=== PATIENT | female | born 1950 | race African-American/Black ===

== ENCOUNTER 2017-08-31 19:34 | Emergency (ER) | payer OTHER ==
[~2017-08-31] VITALS: Ht 157.5 cm; Wt 59.9 kg
[~2017-08-31 19:34] MED LIST: BIOTIN5 MG PO; CHROMIUM400 MCG PO; COUMADIN 1MG TAB1 M1 PO; COUMADIN 5 MG TA5 M1 PO; COUMADIN7.5 MG PO; HYDROCHLOROTHIA25 M2 PO; VITAMIN D1000 UNI2 PO
[2017-08-31 21:15] LABS: INR 1.2; PROTIME 12.7 Seconds (9.3-11.4)
[2017-08-31] MEDS ORDERED: NORFLEX100 MG PO (21:20)
[2017-08-31] MEDS ORDERED: ZOFRAN ODT4 M1 PO (21:20)
[2017-08-31 21:26] VITALS: BP 117/84
== END 2017-08-31 21:25 | disposition home or self-care (01) ==
LOC: ER 19:34
PROVIDERS: Nurse Practitioner Family
DX: S39.012A Strain of muscle, fascia and tendon of lower back, initial encounter (principal); S29.012A Strain of muscle and tendon of back wall of thorax, initial encounter; R11.0 Nausea; R79.1 Abnormal coagulation profile; I10 Essential (primary) hypertension; Z90.710 Acquired absence of both cervix and uterus; Z86.73 Personal history of transient ischemic attack (TIA), and cerebral infarction without residual deficits; V49.49XA Driver injured in collision with other motor vehicles in traffic accident, initial encounter; Y93.89 Activity, other specified; Y92.89 Other specified places as the place of occurrence of the external cause; Y99.8 Other external cause status

== ENCOUNTER 2018-12-09 18:36 | Emergency (ER) | payer OTHER ==
[~2018-12-09] VITALS: Ht 157.5 cm; Wt 62.6 kg
[~2018-12-09 18:36] MED LIST changes: +NORFLEX100 MG PO; +ZOFRAN ODT4 M1 PO
[2018-12-09] MEDS ORDERED: TYLENOL EXTRA500 MG PO (20:47)
[2018-12-09 21:57] VITALS: BP 115/80
== END 2018-12-09 21:58 | disposition home or self-care (01) ==
LOC: ER 18:36
DX: S46.212A Strain of muscle, fascia and tendon of other parts of biceps, left arm, initial encounter (principal); I10 Essential (primary) hypertension; Z86.73 Personal history of transient ischemic attack (TIA), and cerebral infarction without residual deficits; Z90.710 Acquired absence of both cervix and uterus; X58.XXXA Exposure to other specified factors, initial encounter; Y93.89 Activity, other specified; Y92.89 Other specified places as the place of occurrence of the external cause; Y99.8 Other external cause status

== ENCOUNTER 2019-02-22 22:29 | Emergency (ER) | payer OTHER ==
[~2019-02-22] VITALS: Ht 157.5 cm; Wt 62.6 kg
[~2019-02-22 22:29] MED LIST changes: +TYLENOL EXTRA500 MG PO
[2019-02-23] MEDS ORDERED: NORCO 5-325 TA1 EACH PO (02:20)
[2019-02-23] MEDS ORDERED: VALIUM5 MG PO (02:20)
[2019-02-23 02:57] VITALS: BP 110/80
[2019-02-24] MEDS ORDERED: COUMADIN7.5 MG PO (16:08)
== END 2019-02-23 02:59 | disposition home or self-care (01) ==
LOC: ER 22:29
DX: M54.32 Sciatica, left side (principal); I10 Essential (primary) hypertension; Z86.73 Personal history of transient ischemic attack (TIA), and cerebral infarction without residual deficits; Z90.710 Acquired absence of both cervix and uterus

== ENCOUNTER 2019-02-24 15:43 | Inpatient (IN) | payer OTHER ==
[~2019-02-24] VITALS: Ht 157.5 cm; Wt 62.6 kg
[~2019-02-24 15:43] MED LIST changes: +NORCO 5-325 TA1 EACH PO; +VALIUM5 MG PO
[2019-02-24 15:44] VITALS: BP 123/79
[2019-02-24] MEDS ORDERED: COUMADIN7.5 MG PO (16:08)
[2019-02-24 16:45] LABS: ABSOLUTE NEUTROPHILS 7.4 thou/uL (1.4-8.2); BASOPHILS 0.3 % (0.0-2.0); EOSINOPHILS 0.5 % (0.0-3.0); HEMATOCRIT 41.4 % (37.0-47.0); HEMOGLOBIN 13.8 gm/dL (12.0-15.0); LYMPHOCYTES 10.8 % (24.0-44.0); MCHC 33.5 g/dL (28.0-37.0); MCV 89.8 fL (80.0-100.0); MONOCYTES 9.7 % (1.0-8.0); PLATELET COUNT 217 thou/uL (150-400); POLYS 78.7 % (36.0-66.0); RBC 4.61 mil/uL (4.20-5.00); RDW 14.2 % (10.5-14.5); WBC 9.4 thou/uL (4.0-11.0)
[2019-02-24 16:48] LABS: CALCIUM 10.4 mg/dL (8.5-10.1); CREATININE 1.1 mg/dL (0.6-1.0); POTASSIUM 3.2 mmol/L (3.5-5.1)
[2019-02-24 18:02] LABS: URINE BILIRUBIN NEGATIVE (Negative); URINE BLOOD 2+ (Negative); URINE CLARITY CLEAR; URINE COLOR YELLOW; URINE GLUCOSE-RANDOM* NEGATIVE (Negative); URINE KETONES 1+ (Negative); URINE NITRITE-REFLEX NEGATIVE (Negative); URINE PROTEIN (DIPSTICK) NEGATIVE (Negative); URINE UROBILINOGEN 0.2 E.U./dl (0.2-1.0)
[2019-02-24 18:03] LABS: URINE LEUKOCYTES-REFLEX 3+ (Negative)
[2019-02-24 18:20] LABS: BACTERIA-REFLEX None Seen /HPF (None Seen); CASTS None Seen /LPF (None Seen); CRYSTALS None Seen /LPF (None Seen); SQUAMOUS 0-3 Few /LPF (0-3); URINE RBC 3-10 Few /HPF (0-2); URINE WBC-REFLEX >25 Many /HPF (0-5); WBC CLUMPS Moderate (None Seen)
[2019-02-24 20:41] VITALS: BP 124/80
[2019-02-24 21:57] VITALS: BP 116/72
--- NOTE | 2019-02-25 03:40 | NUR ---
Pt came up to unit from ED approx 2049. Alert and oriented x4. C/o back pain radiating to left leg. Prn pain med administered. Admission completed. Pt will have MRI in am. MRI checklist completed and faxed to radiology. IVF infusing. Will continue to monitor and assist with needs.
[2019-02-25 05:25] VITALS: BP 103/72
[2019-02-25 05:35] LABS: CALCIUM 9.8 mg/dL (8.5-10.1); CREATININE 0.9 mg/dL (0.6-1.0); INR 2.8; PROTIME 28.8 Seconds (9.3-11.4)
--- NOTE | 2019-02-25 08:06 | NUR ---
PT A&OX4, AMBULATES WITH ASSIST X1 AND WALKER. IV INTACT INTACT IN R AC INFUSING NS @ 75/HR. TOLERATING PO PAIN MED WELL. CALLS OUT APPROP. WILL CONT POC.
--- NOTE | 2019-02-25 16:04 | NUR ---
INITIAL ASSESSMENT: Pt evaluated for d/c planning needs. Reviewed chart and spoke with nurse and pt. Pt is alert and oriented. Pt lives in house with spouse and was independent with ADL's prior to admission to the hospital. Pt has no DME and has not had home health in the past. Pt plans on returning home on d/c from hospital. Will remain available to assist as needed.
[2019-02-25 19:38] VITALS: BP 122/84
[2019-02-25 23:28] VITALS: BP 108/72
--- NOTE | 2019-02-26 03:57 | NUR ---
Assumed pt care at 1900.A/OX4,VSS.C/o pain to left lower back especially with movement LOP 8/10 medicated per EMAR with some relief reported. Voiding without any difficulties.Pt encouraged to call for assistance as needed,call light/personal items placed within reach. Will continue to monitor pt.
[2019-02-26 06:55] LABS: INR 3.7; PROTIME 38.2 Seconds (9.3-11.4)
[2019-02-26 07:23] VITALS: BP 115/82
--- NOTE | 2019-02-26 10:18 | NUR ---
PATIENT CARE WAS ASSUMED AT 0715.PATIENT IS ALERT AND ORIENTED X4.PATIENT IS ABLE TO GET UP WITH STANDBY ASSIST WITH WALKER.PT HAS COMPLAINS OF PAIN 7/10.WILL GIVE PAIN MEDS WITN MORNING MED PASS.CALL LIGHT,PHONE, AND PERSONAL BELONGINGS ARE WITHIN REACH.
--- NOTE | 2019-02-26 16:57 | NUR ---
IT IS ANTICIAPTED THAT CARE TEAM ARE STILL AWAITING VISIT FROM PAIN MANAGEMENT. CM TO FOLLOW INDICATED WITH DC PLANNING.
[2019-02-26 21:26] VITALS: BP 122/81
[2019-02-26 21:29] VITALS: BP 122/81
--- NOTE | 2019-02-27 02:32 | NUR ---
Assumed pt. care at 1900. Remains A&Ox3; swallows meds whole w/o difficulty. Remains cont. B&B. Ambulates to bathroom w/ standby asst + walker; gait steady. RAC SL noted/flushed w/ NS w/o difficulty. Pt. has no c/o pain or discomfort, at this time. No s/s of acute distress noted. Pt. asleep in bed w/ call light/desired belongings within reach. PO fluids encouraged. Will continue to monitor.
[2019-02-27 08:15] VITALS: BP 116/77
[2019-02-27 08:23] LABS: INR 2.3; PROTIME 23.6 Seconds (9.3-11.4)
--- NOTE | 2019-02-27 13:15 | NUR ---
ASSUMED PATIENT AND CARES AT 0715, PATIENT WOKE IN BED WITH HOB UPRIGHT, A&OX4, PAIN 02/27, RECEIVED PRN MORPHINE AT 0510 AND PRN NORCO AT 0240, SBA WITH WALKER, PATIENT MOVES SLOWLY DUE TO PAIN, CONTINENT OF B&B, RAC INTACT AND PATENT PER FLUSH, FALL PRECAUTIONS IN PLACE, PERSONAL BELONGINGS AND CALL LIGHT IN REACH, WILL CONTINUE TO MONITOR
--- NOTE | 2019-02-27 16:19 | NUR ---
PHYSICIAN INDICATED THAT PT IS PROGRESSING TOWARD GOAL OF DISCHARGE BUT THAT SHE IS NOT YET MEDICALLY STABLE FOR DISCHARGE. SHOULD PT NEEDS ARISE CM ABLE TO ASSIST.
[2019-02-27 19:30] VITALS: BP 110/78
--- NOTE | 2019-02-28 03:21 | NUR ---
ASSUMED CARE FROM DAY SHIFT PT CONTINUE TO TAKE PAIN MEDICATION OTC FOR BACK PAIN , UP WITH WALKER GAIT SLOW BUT STEADY, DICUSSED PLAN OF CARE AND AGREEABLE AND VERBALIZED UNDERSTANDING. WILL CONINTUE WITH CURRENT PLAN OF CARE AND WILL REPORT CHANGES OR ABNORMAL FINDINGS.
[2019-02-28 08:27] VITALS: BP 111/78
[2019-02-28 18:04] VITALS: BP 132/80
--- NOTE | 2019-02-28 18:41 | NUR ---
REPORT RECEIVED AND CARE ASSUMED FROM NOC NURSE; PT IN STABLE CONDITION THIS SHIFT; NO S/SX OF DISTRESS; PT C/O CONTINUED LOWER BACK PAIN, 04/29; PT GIVEN NORCO 2 TABS Q4H; NO OTHER ISSUES/CONCERNS; FOLLOWING POC; WILL CONT. TO MONITOR
[2019-02-28 20:23] VITALS: BP 117/76
[2019-03-01 05:29] VITALS: BP 108/66
--- NOTE | 2019-03-01 07:52 | NUR ---
NOC SHIFT SUMMARY: PT WALKING TO THE BATHROOM USING ROLLER WALKER WITH SBA. BACK PAIN WELL CONTROLLED WITH HYDROCODONE. NO FURTHER CONCERNS.
--- NOTE | 2019-03-01 15:20 | NUR ---
ASSUMED CARE OF PT AT 0700. ASSESSMENT COMPLETED. A&O,X4. C/O LEFT SIDED BACK PAIN AND LEFT LEG PAIN, PAIN MEDS GIVEN ORDERED. NEW MEDS ORDERED FOR MUSCLE SPASMS TODAY, GIVEN ORDERED. ROOM AIR. STANDBY ASSIST. VSS. PT IN STABLE CONDITION. NO OTHER CHANGE IN STATUS. WILL CONTINUE TO MONITOR UNTIL EOS.
[2019-03-01 20:17] VITALS: BP 104/81
[2019-03-02 05:24] VITALS: BP 112/76
[2019-03-02 06:00] LABS: INR 1.2; PROTIME 12.2 Seconds (9.3-11.4)
--- NOTE | 2019-03-02 06:31 | NUR ---
PT C/O PAIN,MANAGED WITH PO PAIN MED.UP WITH SBA AND WALKER TO BR.ASESSMENT COMPLETED.CALL LIGHT WITHIN REACH.
[2019-03-02 08:20] VITALS: BP 110/84
[2019-03-02] MEDS ORDERED: CYCLOBENZAPRINE5 MG PO (11:52)
[2019-03-02] MEDS ORDERED: MIRALAX17 GM PO (12:00)
[2019-03-02 13:29] VITALS: BP 110/84
[2019-03-02] MEDS ORDERED: NORCO 5-325 TA1 EACH PO (13:48)
[2019-03-02 14:33] VITALS: BP 110/84
--- NOTE | 2019-03-02 15:44 | NUR ---
ASSUMED CARE OF PT AT 0700. ASSESSMENT COMPLETED. A&O,X4. C/O LOWER BACK PAIN RADIATING TO LEFT LEG PAIN, PAIN MEDS GIVEN ORDERED. NEW DISCHARGE ORDERS. PT WILL NEED TO FOLLOW UP WITH PAIN CLINIC AND MAKE APPOINTMENT FOR TOMORROW TO HAVE EPIDURAL INJECTION. PT VERBALIZES UNDERSTANDING. D/C INFORMATION GIVEN TO PT AND FAMILYL AT BEDSIDE. NEW SCRIPTS AND CARENOTES GIVEN. IV REMOVED, NO ACTIVE BLEEDING. PT DRESSED IN PERSONAL CLOTHING. BELONGINGS COLLECTED AND SENT WITH PT. NEW WALKER GIVEN TO PT AT TIME OF D/C. PT LEFT VIA WHEELCHAIR ESCORT IN STABLE CONDITION AT 15:45.
[2019-03-03] MEDS ORDERED: COUMADIN 5 MG TA5 M1 PO (13:31)
[2019-03-03] MEDS ORDERED: COUMADIN7.5 MG PO (13:32)
[2019-03-03] MEDS ORDERED: NORCO 5-325 TA1 EACH PO (13:32)
== END 2019-03-02 15:48 | disposition home or self-care (01) | DRG 551 ==
LOC: ER 15:43 → EROBS 19:10 → 4E 19:10 → ENTRNSPT 02-25 17:42 → SICU 02-25 18:39 → 4E 02-28 17:04 → ENTRNSPT 03-02 15:33 → EDTRNSPTSTS 03-02 15:37 → 4E 03-02 15:48
PROVIDERS: Emergency Medicine; Nurse Practitioner Family; ADMIT Hospitalist
DX: M54.32 Sciatica, left side (principal); I63.9 Cerebral infarction, unspecified; N39.0 Urinary tract infection, site not specified; K59.00 Constipation, unspecified; G89.29 Other chronic pain; M54.9 Dorsalgia, unspecified; Z90.710 Acquired absence of both cervix and uterus; Z86.73 Personal history of transient ischemic attack (TIA), and cerebral infarction without residual deficits; Z86.718 Personal history of other venous thrombosis and embolism
CPT/HCPCS: 10084; 10183; 10783; 15002

== ENCOUNTER → 2019-03-03 | Outpatient (CLI) | payer OTHER ==
[~2019-03-03] VITALS: Ht 157.5 cm; Wt 61.2 kg
[~2019-03-03] MED LIST changes: +CYCLOBENZAPRINE5 MG PO; +MIRALAX17 GM PO
--- NOTE | ~2019-03-03 | HPC ---
[facility] [place] [address] PAIN MANAGEMENT CONSULTATION Name: CYNHTIA FARMER [id number] Admission: 03/03/19 ������������������ Attend Phys: William Olson DO Discharge: ������������������ Date of : 50 Report #: [id number] THIS REPORT FOR: //name// CC: Ozzie Olson DATE OF SERVICE: 03/03/2019 REFERRING PHYSICIAN: Ozzie King MD. CHIEF COMPLAINT: Low back pain, left lower extremity pain and paresthesias. HISTORY OF PRESENT ILLNESS: As you know, the patient is a 68-year-old female who reports acute onset of low back pain, left lower extremity pain and paresthesias that began 02/22/2019. She denies injury or trauma that may have led to symptom development. She states pain began in the low back, radiating down the leg, which brought her to the Emergency Department here at [facility]. She was admitted for further evaluation. She underwent MRI of the lumbar spine, which showed spondylolisthesis at multiple levels with most severe at the L5-S1 level, left foraminal stenosis noted at the L5-S1 level. No significant central canal stenoses were noted at any level. The patient was subsequently discharged with plans to come to our clinic today for possible epidural injection under fluoroscopic guidance. The patient has had prior epidural injections to address lumbar radicular symptoms. Apparently, they worked very well in the past, but this has been years ago. The patient reports today, her pain is steady, continuous and constant, describes the pain as shooting, pulling, gnawing, places current pain score at 8/10, daily average at 8-9/10, worst pain has been a 10/10. The patient states that "moving" exacerbates her symptoms. Lying down and pain medications tend to improve pain. She has been referred to our service by Dr. King for possible epidural injection under fluoroscopic guidance. PAST MEDICAL HISTORY: 1. Chronic colon problems. 2. 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 3. Hypertension. PAST SURGICAL HISTORY: Jac lowery. SOCIAL HISTORY: The patient denies tobacco, alcohol, IV or illicit drug use. 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 She is working, not receiving workmen's compensation or is she trying to obtain disability benefits. She is not in litigation in regards to pain. [facility] [address] [place] [address] PAIN MANAGEMENT CONSULTATION Name: CYNTHIA FARMER Charles Room #: REG CL Yenifer#: [id number] Admission: 03/03/19 ������������������ Attend Phys: William Olson DO Discharge: ������������������ Date of : 50 Report #: [id number] REVIEW OF SYSTEMS: Positive for wearing corrective eyewear, varicose veins, low back pain, left lower extremity pain with paresthesias, hypertension. All other review of systems negative per 12-point review of systems other than those listed in history of present illness. Pain impact score 40/70 indicating moderate interference of daily activities secondary to pain. ALLERGIES: No known drug allergies. CURRENT MEDICATIONS: Hydrochlorothiazide 25 mg once a day, cholecalciferol 1000 units once a day, Coumadin 5 mg once a day, hydrocodone/acetaminophen 5/325 three times a day p.r.n. pain. IMAGING: MRI lumbar spine obtained 02/25/2019 shows T12-L1 unremarkable. L1-L2 shows no significant central canal neural foraminal stenosis. L2-L3: Slight disk bulge, bilateral facet arthrosis, no central canal stenosis, no significant neural foraminal stenosis. L3-L4: Bilateral hypertrophic facet arthropathy, small joint effusions, mild degenerative changes with anterolisthesis of L3 on L4. There is slight disk bulge at this level. No significant neural foraminal stenosis. L4-L5: Bilateral facet hypertrophy, small facet joint effusions, mild degenerative anterolisthesis of L4 on L5, minimal disk bulge without central canal or neural foraminal stenosis. No lateral recess stenosis. L5-S1 shows marked disk space narrowing with grade 1 spondylolisthesis. There is noted bilaterally L5 pars interarticularis defects as well as bilateral facet arthropathy. No central canal stenosis. There is neural foraminal stenosis on the left. No significant right foraminal stenosis. PHYSICAL EXAMINATION: VITAL SIGNS: Blood pressure 107/83, pulse 79, respiratory rate 16 and unlabored. The patient is 98% on room air. Height 5 feet 2 inches tall, weight 135 pounds, BMI calculated 24.7. GENERAL: Well-developed, well-nourished, well-hydrated 68-year-old female, appearing stated age. She is in mild distress secondary to pain, placing current pain score at 8/10. HEENT: Normocephalic, atraumatic. Pupils equal, round, reactive to light. Extraocular muscles are intact. Sclerae nonicteric without injection. NEUROLOGIC: Cranial nerves 2-12 grossly intact. Speech is fluent. The patient deemed a good historian. LUNGS: Clear, no wheeze, rhonchi or rales. CARDIOVASCULAR: Regular. No appreciable gallop, no rub. ABDOMEN: Soft, nontender, nondistended, normoactive bowel sounds. EXTREMITIES: Show no clubbing, no cyanosis, no edema. MUSCULOSKELETAL: Lower extremity strength is symmetrical 5/5. Slight giveaway strength noted on the left when compared to the right with hip flexion causing [facility] [address] [place] [address] PAIN MANAGEMENT CONSULTATION Name: CYNTHIA FARMER [facility] #[facility] [id number] Admission: 03/03/19 ������������������ Attend Phys: William Olson DO Discharge: ������������������ Date of : 50 Report #: [id number] intensification of low back and buttock pain. Muscle bulk and tone is symmetrical in comparing left lower extremity over right. Seated straight leg raising negative. Supine straight leg raising mildly positive left. BERT test negative. Modified Gaenslen's positive for axial low back pain. Ankle clonus negative. Babinski is negative. Gait antalgic favoring left lower extremity over right. ASSESSMENT: 1. Symptomatic lumbar radiculopathy. 2. Neural foraminal stenosis of the lumbar spine. 3. Spondylolisthesis of L5 on S1. 4. 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 5. Lumbosacral spondylosis with radiculopathy. 6. Displacement of lumbar intervertebral disk with radiculopathy. 7. Lumbar degeneration. PLAN: 1. The patient was recently admitted to the hospital where she was evaluated by the admitting physician and diagnosed with lumbar radiculopathy. It does appear that the patient is suffering from lumbar radicular symptoms based on the distribution of symptoms she is experiencing pain on as well as the pain intensity and the provocating factors. It is also corroborated by the MRI, which shows changes at the L5-S1 level in the left foramen that would correlate with symptoms presented today. We discussed with the patient the following treatment options to address lumbar radicular symptoms based on the findings of her MRI and physical exam today. We discussed physical therapy, stretching exercises and core strengthening as a treatment option. We discussed medication management adding a neuropathic pain medication and a nonsteroidal anti-inflammatory for baseline pain control. We discussed lumbar epidural injection under fluoroscopic guidance to address lumbar radicular symptoms as rapidly as possible. We discussed spinal cord stimulator therapy and ultimately surgical options to decompress the nerve at the L5-S1 level on the left as well as stabilize any potential pathologic movement of the L5 on S1 due to the anterolisthesis and the pars defects noted bilaterally. After reviewing the risks and benefits of all proposed treatment options, the patient chose to move forward with a lumbar epidural injection under fluoroscopic guidance. We have taken the liberty of contacting the patient's third libertarian payer. We did receive authorization for the patient to undergo the epidural injection today. She has been consented to undergo the procedure and advised of the risks and benefits. These risks include but are not necessarily limited to bleeding, bruising, infection, worsening pain, no relief of pain, also risk of temporary or permanent muscle weakness, temporary or permanent nerve damage, possible paralysis and . The patient states understood and wished to proceed. [address] [address] PAIN MANAGEMENT CONSULTATION Name: CYNTHIA FARMER Charles Room #: REG [address]#: [id number] Admission: 03/03/19 ������������������ Attend Phys: William Olson DO Discharge: ������������������ Date of : 50 Report #: [id number] 2. No medication changes made at today's visit. The patient will continue current medical therapy as previously prescribed. 3. We will see the patient back in followup visit in approximately 3 weeks. At that time, review the efficacy of today's epidural injection and determine if next in the series would be recommended. 4. We wish to thank Dr. King for the referral of the patient to our clinic. We will keep you apprised her response to treatment as we address suspected lumbar radiculopathy. Again, we wish to thank you for the opportunity to see the patient in consultation. PROCEDURE NOTE: DESCRIPTION OF PROCEDURE: L5-S1 left paramedian epidural steroid injection under fluoroscopic guidance. This is the first procedure of the first series that the patient is undergoing. After obtaining written consent, the patient was taken back to the fluoroscopy suite, placed in a prone position with pillow under the abdomen to decrease lumbar lordosis. The skin overlying the lumbosacral area was then prepped and draped in aseptic fashion. The L5-S1 vertebral interspace was then identified by AP fluoroscopy. The skin and subcutaneous tissue overlying the target site of injection was anesthetized with 3 mL 1% lidocaine. A 20-guage 3-1/2 inch Tuohy needle was then advanced under fluoroscopic guidance towards the epidural space using a left paramedian approach. The epidural space was identified using loss of resistance to air technique. After negative aspiration for heme or cerebrospinal fluid, a total of 1 mL of Omnipaque was injected. A lumbar epidurogram was confirmed using both AP and lateral fluoroscopy. After negative aspiration for heme or cerebrospinal fluid, 5 mL of a solution containing 2 mL, 40 mg per mL, 80 mg total triamcinolone and 3 mL of lidocaine 1% was injected in increments. Contrast spread was noted posterior epidural space. The needle was then retracted approximately half way and needle tract flushed with 1 mL of 1% lidocaine. Needle was then removed. There were no apparent sensory or motor deficits in the lower extremity following the procedure. A sterile bandage was placed over the injection site. The heart rate, pulse, oximetry and blood pressure were continuously monitored after the procedure. There were no apparent complications. The patient tolerated the procedure well and was carefully escorted to the recovery room in [facility] [address] [facility] [place] [address] PAIN MANAGEMENT CONSULTATION Name: CYNTHIA FARMER Room #: REG CLI Yenifer#: [id number] Admission: 03/03/19 ������������������ Attend Phys: William Olson DO Discharge: ������������������ Date of : 50 Report #: [id number] stable condition. There were no apparent complications. After meeting discharge criteria, the patient was then discharged home. ��������������������������������������������� ���������������������������������������� By: ��������������������������������������������� [id number] William Olson DO /nt
[2019-03-03 13:07] LABS: INR 1.1; PROTIME 11.7 Seconds (9.3-11.4)
[2019-03-03 13:20] VITALS: BP 107/83
--- NOTE | 2019-03-03 13:32 | NUR ---
Pain Clinic Assessment: 1. History of Osteoarthritis: Not Applicable History of Rheumatoid Arthritis: MA 2. Height: 5 ft. 2 in. 157.5 cm. Weight: 135.0 lb. oz. 61.236 kg. Patient's BMI: 24.7 3. Vital Signs: BP: 107/83 Pulse: 79 Resp: 16 Temp: 02 Sat: 98 ECG Mon: 4. Pain Intensity: 8 5. Fall Risk: Dizziness: N Needs help standing or walking: Y Fallen in the last 3 months: N Fall risk comments: 6. Patient on Blood Thinner: Warfarin (Coumadin) 7. History of Hypertension: N 8. Opioid Therapy greater than 6 weeks: N Opiate Contract Signed: 9. Risk Assessment Tool Provided: LOW RISK 0/3 10. Functional Assessment Tool: 47/70 11. Recreational Drug Use: Never Drug Type: Tobacco Use: Never Smoker Tobacco Type: Amount or Packs/day: How Many Years: Alcohol Use: No Frequency: Quant:
== END | disposition home or self-care (01) ==
LOC: PAIN 06:55
PROVIDERS: Anesthesiology Pain Medicine
DX: M51.16 Intervertebral disc disorders with radiculopathy, lumbar region (principal); M48.061 Spinal stenosis, lumbar region without neurogenic claudication; M43.17 Spondylolisthesis, lumbosacral region; M47.27 Other spondylosis with radiculopathy, lumbosacral region; I10 Essential (primary) hypertension; K52.9 Noninfective gastroenteritis and colitis, unspecified; Z79.899 Other long term (current) drug therapy; Z79.01 Long term (current) use of anticoagulants; Z79.891 Long term (current) use of opiate analgesic; Z86.73 Personal history of transient ischemic attack (TIA), and cerebral infarction without residual deficits; Z98.890 Other specified postprocedural states

== ENCOUNTER → 2019-03-24 | Outpatient (CLI) | payer OTHER ==
[~2019-03-24] VITALS: Ht 157.5 cm; Wt 57.2 kg
[~2019-03-24] MED LIST changes: +XARELTO20 MG PO
[2019-03-24 11:32] LABS: INR 1.1; PROTIME 11.6 Seconds (9.3-11.4)
[2019-03-24 12:42] VITALS: BP 142/94
--- NOTE | 2019-03-24 12:51 | NUR ---
Pain Clinic Assessment: 1. History of Osteoarthritis: Not Applicable History of Rheumatoid Arthritis: MA 2. Height: 5 ft. 2 in. 157.5 cm. Weight: 126.2 lb. oz. 57.244 kg. Patient's BMI: 23.1 3. Vital Signs: BP: 142/94 Pulse: 68 Resp: 14 Temp: 02 Sat: 100 ECG Mon: 4. Pain Intensity: 5 5. Fall Risk: Dizziness: N Needs help standing or walking: N Fallen in the last 3 months: N Fall risk comments: 6. Patient on Blood Thinner: XERALTO 7. History of Hypertension: N 8. Opioid Therapy greater than 6 weeks: N Opiate Contract Signed: 9. Risk Assessment Tool Provided: LOW RISK 0/3 10. Functional Assessment Tool: 47/70 11. Recreational Drug Use: Never Drug Type: Tobacco Use: Never Smoker Tobacco Type: Amount or Packs/day: How Many Years: Alcohol Use: No Frequency: Quant:
--- NOTE | 2019-03-31 10:49 | P ---
[facility] [place] [address] PROCEDURE REPORT Name: CYNTHIA FARMER Charles [facility] [id number] Admission: 03/24/19 ������������������ Attend Phys: William Olson DO Discharge: ������������������ Date of : 50 Report #: [id number] THIS REPORT FOR: //name// CC: Ozzie Olson DATE OF SERVICE: 03/24/2019 DESCRIPTION OF PROCEDURE: L5-S1 left paramedian epidural steroid injection under fluoroscopic guidance. This is the second procedure of the first series that the patient is undergoing. After obtaining written consent, the patient was taken back to the fluoroscopy suite, placed in a prone position with pillow under the abdomen to decrease lumbar lordosis. The skin overlying the lumbosacral area was then prepped and draped in aseptic fashion. The L5-S1 vertebral interspace was then identified by AP fluoroscopy. The skin and subcutaneous tissue overlying the target site of injection was anesthetized with 3 mL 1% lidocaine. A 20-gauge 3-1/2-inch Tuohy needle was then advanced under fluoroscopic guidance towards the epidural space using a left paramedian approach. The epidural space was identified using loss of resistance to air technique. After negative aspiration for heme or cerebrospinal fluid, a total of 1 mL of Omnipaque was injected. A lumbar epidurogram was confirmed using both AP and lateral fluoroscopy. After negative aspiration for heme or cerebrospinal fluid, 5 mL of a solution containing 2 mL 40 mg per mL, 80 mg total triamcinolone and 3 mL lidocaine 1% was injected in increments. Contrast spread was noted posterior epidural space. The needle was then retracted approximately half way and needle tract flushed with 1 mL of 1% lidocaine. Needle was then removed. There were no apparent sensory or motor deficits in the lower extremity following the procedure. A sterile bandage was placed over the injection site. The heart rate, pulse, oximetry and blood pressure were continuously monitored after the procedure. There were no apparent complications. The patient tolerated the procedure well and was carefully escorted to the recovery room in stable condition. There were no apparent complications. After meeting discharge criteria, the patient was then discharged home. ��������������������������������������������� <ELECTRONICALLY SIGNED> ���������������������������������������� By: William Olson DO ��������������������������������������������� 03/31/19 1049 [id number] William Olson DO /nt
--- NOTE | 2019-03-31 10:49 | HPC ---
[facility] [place] [address] PAIN MANAGEMENT CONSULTATION Name: CYNTHIA FARMER Room #: REG [address]#: [id number] Admission: 03/24/19 ������������������ Attend Phys: William Olson DO Discharge: ������������������ Date of : 50 Report #: [id number] THIS REPORT FOR: //name// CC: Ozzie Olson DATE OF SERVICE: 03/24/2019 CHIEF COMPLAINT: Low back pain, left lower extremity pain with paresthesias. HISTORY OF PRESENT ILLNESS: As you know, the patient is a 68-year-old female with acute onset of low back pain, left lower extremity pain with paresthesias that began 02/22/2019. The patient denied any injury or trauma that may have led to symptom development. We saw the patient per her referring physician's request on 03/03/2019. She was diagnosed with symptomatic lumbar radiculopathy secondary to a spondylolisthesis at L5-S1 causing neural foraminal stenosis. It was noted that the patient also had pars defects bilaterally at L5 level, which is secondary to the spondylolisthesis. She underwent an epidural injection under fluoroscopic guidance at that visit with improvement in symptoms. She reported pain improvement of 95%. Unfortunately, her symptoms have begun to return without inciting injury or trauma. She is currently placing pain score 5/10. She returns today in followup visit requesting to undergo next in the series of epidural injections in hopes of building on the success of the previous intervention. She denies new injury, new trauma or any changes in medical history since our last visit. ALLERGIES: No known drug allergies. CURRENT MEDICATIONS: Hydrochlorothiazide 25 mg once a day, cholecalciferol 1000 units once a day, Xarelto 20 mg once a day, hydrocodone/acetaminophen 5/325 one tab p.o. q.8h. p.r.n. for pain. SOCIAL HISTORY: The patient denies tobacco, alcohol, IV or illicit drug use. 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 She is working, not receiving workmen's compensation, unaccompanied today. IMAGING: No new imaging available. PHYSICAL EXAMINATION: VITAL SIGNS: Blood pressure 142/94, pulse 68, respiratory rate 14 and unlabored. The patient is 100% on room air. Height 5 feet 2 inches tall, weight 126.2 pounds, BMI calculated 23.1. GENERAL: Well-developed, well-nourished, well-hydrated 68-year-old female appearing stated age, pain is rated at around 5/10. [place] [address] PAIN MANAGEMENT CONSULTATION Name: CYNTHIA FARMER Room #: REG [facility]#: [id number] Admission: 03/24/19 ������������������ Attend Phys: William Olson DO Discharge: ������������������ Date of : 50 Report #: [id number] HEENT: Normocephalic, atraumatic. Pupils equal, round, reactive to light. Extraocular muscles are intact. EXTREMITIES: Show no clubbing, no cyanosis, and no edema. MUSCULOSKELETAL: Lower extremity strength appears symmetrical again today 5/5, intact to light touch from L1 through S2 dermatomes. Seated straight leg raising negative. Supine straight leg raising positive on the left. Leonor's test negative. Modified Gaenslen's is positive for axial low back pain. Ankle clonus negative. Babinski is negative. ASSESSMENT: 1. Symptomatic lumbar radiculopathy. 2. Neural foraminal stenosis of lumbar spine. 3. Spondylolisthesis of L5 on S1. 4. Pars interarticularis defects at L5. 5. Lumbosacral spondylosis with radiculopathy. 6. Displacement of lumbar intervertebral disk with radiculopathy. 7. Lumbar degeneration. PLAN: 1. The patient returns today in followup visit having 95% improvement in overall pain with the initial epidural injection. Unfortunately, her symptoms have begun to return. She is now placing pain score 5/10, but reports continued 60% improvement overall from the epidural injection. She returns to undergo next in the series of epidural injections. She was advised third constitution party payer restrictions do require that authorization be obtained. We have taken the liberty of obtaining this authorization today and she is prepared to undergo the procedure. She has been advised of those risks and benefits once again before undergoing the procedure, states she understood and wished to proceed. 2. No medication changes made at today's visit. The patient will continue current medication management as previously prescribed. 3. We will see the patient back in followup visit on an as needed basis for the next in the series of lumbar epidural injections. ��������������������������������������������� <ELECTRONICALLY SIGNED> ���������������������������������������� By: William Olson DO ��������������������������������������������� 03/31/19 1049 1737 1858 William Olson DO /nt
== END | disposition home or self-care (01) ==
LOC: PAIN 06:50
PROVIDERS: Anesthesiology Pain Medicine
DX: M51.16 Intervertebral disc disorders with radiculopathy, lumbar region (principal); M99.73 Connective tissue and disc stenosis of intervertebral foramina of lumbar region; M43.17 Spondylolisthesis, lumbosacral region; M47.27 Other spondylosis with radiculopathy, lumbosacral region; Z79.899 Other long term (current) drug therapy; Z79.01 Long term (current) use of anticoagulants

== ENCOUNTER → 2019-07-28 | Outpatient (CLI) | payer OTHER ==
[~2019-07-28] VITALS: Ht 157.5 cm; Wt 60.3 kg
[2019-07-28 11:14] VITALS: BP 145/96
--- NOTE | 2019-07-28 11:18 | NUR ---
Pain Clinic Assessment: 1. History of Osteoarthritis: Not Applicable History of Rheumatoid Arthritis: Not Applicable 2. Height: 5 ft. 2 in. 157.5 cm. Weight: 133.0 lb. oz. 60.328 kg. Patient's BMI: 24.3 3. Vital Signs: BP: 145/96 Pulse: 61 Resp: 18 Temp: 02 Sat: 100 ECG Mon: 4. Pain Intensity: 5 5. Fall Risk: Dizziness: N Needs help standing or walking: N Fallen in the last 3 months: N Fall risk comments: 6. Patient on Blood Thinner: XERALTO 7. History of Hypertension: N 8. Opioid Therapy greater than 6 weeks: N Opiate Contract Signed: 9. Risk Assessment Tool Provided: LOW RISK 0/3 10. Functional Assessment Tool: 47/70 11. Recreational Drug Use: Never Drug Type: Tobacco Use: Never Smoker Tobacco Type: Amount or Packs/day: How Many Years: Alcohol Use: No Frequency: Quant:
--- NOTE | 2019-08-04 08:01 | HPC ---
[facility] [address] [place] [address] PAIN MANAGEMENT CONSULTATION Name: CYNTHIA FARMER Room #: REG POONAM Moiz.#: [id number] Admission: 07/28/19 Attend Phys: William Olson DO Discharge: Date of : 50 Report #: [id number] THIS REPORT FOR: //name// CC: Ozzie Olson DATE OF SERVICE: 07/28/2019 REFERRING PHYSICIAN: August Steinberg MD CHIEF COMPLAINT: Low back pain, left lower extremity pain with paresthesias. HISTORY OF PRESENT ILLNESS: As you know, the patient is a 69-year-old female, who returns today in followup visit to undergo next in the series of lumbar epidural injections under fluoroscopic guidance. Previous epidural injection gave 90% improvement in overall pain, lasting for nearly 3 months. Unfortunately, her symptoms have begun to return. She returns today in followup visit to undergo next in the series of lumbar epidural injections under fluoroscopic guidance. She reports no injury, no trauma that may have led to symptoms reoccurrence. She has been off her anticoagulant in preparation for today's procedure. ALLERGIES: No known drug allergies. CURRENT MEDICATIONS: Hydrochlorothiazide 25 mg once a day, cholecalciferol 1000 units once a day, Xarelto 20 mg once a day, hydrocodone/acetaminophen 5/325 one tab every 8 hours p.r.n. for pain. SOCIAL HISTORY: The patient denies tobacco, alcohol, IV or illicit drug use. 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 IMAGING: No new imaging available. PHYSICAL EXAMINATION: VITAL SIGNS: Blood pressure 145/96, pulse 61, respiratory rate 18 and unlabored. The patient is 100% on room air. Height 5 feet 2 inches tall, weighs 133 pounds, BMI calculated 24.3. GENERAL: Well-developed, well-nourished, well-hydrated 69-year-old female appearing stated age, pain is rated at around 5/10. HEENT: Normocephalic, atraumatic. Pupils equal, round, reactive to light. Extraocular muscles are intact. EXTREMITIES: Show no clubbing, no cyanosis, and no edema. [facility] [address] [place] [address] PAIN MANAGEMENT CONSULTATION Name: CYNTHIA FARMER Charles Room #: REG [facility]#: [id number] Admission: 07/28/19 Attend Phys: William Olson DO Discharge: Date of : 50 Report #: [id number] MUSCULOSKELETAL: Lower extremity strength equal and symmetrical 5/5. Muscle bulk and tone is comparable when looking at left lower extremity to right. Seated straight leg raising negative. Supine straight leg raising positive on the left. Leonor's test negative. Modified Gaenslen's positive for axial low back pain. Gait mildly antalgic favoring the left lower extremity over right. ASSESSMENT: 1. Symptomatic lumbar radiculopathy. 2. Neural foraminal stenosis of the lumbar spine. 3. Spondylolisthesis of L5 on S1. 4. Pars interarticularis defects of L5. 5. Lumbosacral spondylosis with radiculopathy. 6. Displacement of lumbar intervertebral disk with radiculopathy. 7. Lumbar degeneration. 8. Chronic intractable pain. PLAN: 1. The patient returns today in followup visit having noted 90% improvement in overall pain with the epidural injection provided at last visit. Unfortunately, symptoms have begun to return. She is now placing pain score at around 5/10. She returns to undergo next in the series of epidural injections. She has been off of Xarelto for the last 3 days in preparation for today's procedure. The patient has been advised of risks and benefits of a lumbar epidural injection. These risks include, but are not necessarily limited to bleeding, bruising, infection, worsening pain, no relief of pain, also risk of temporary or permanent muscle weakness, temporary or permanent nerve damage, possible paralysis, and . The patient states she understood and wished to proceed. 2. No medication changes made at today's visit. The patient will continue current medical therapy as previously prescribed. 3. The patient will restart her Xarelto starting this evening and continue the Xarelto as directed. 4. We will see the patient back in followup visit on an as needed basis for possible next in the series of epidural injections. PROCEDURE NOTE DESCRIPTION OF PROCEDURE: L5-S1 left paramedian epidural steroid injection under fluoroscopic guidance. This is the third procedure of the first series that the patient is undergoing. After obtaining written consent, the patient was taken back to the fluoroscopy suite, placed in a prone position with pillow under the abdomen to decrease lumbar lordosis. The skin overlying the lumbosacral area was then prepped and draped in aseptic fashion. The L5-S1 vertebral interspace was then identified by AP fluoroscopy. The skin and subcutaneous tissue overlying the target site [address] [address] PAIN MANAGEMENT CONSULTATION Name: CYNTHIA AFRMER Room #: REG [address]ON[address] Street#: [id number] Admission: 07/28/19 Attend Phys: William Olson DO Discharge: Date of : 50 Report #: [id number] of injection was anesthetized with 3 mL 1% lidocaine. A 20-gauge 3-1/2 inch needle was then advanced under fluoroscopic guidance towards the epidural space using a left paramedian approach. The epidural space was identified using loss of resistance to air technique. After negative aspiration for heme or cerebrospinal fluid, a total of 1 mL of Omnipaque was injected. A lumbar epidurogram was confirmed using both AP and lateral fluoroscopy. After negative aspiration for heme or cerebrospinal fluid, 5 mL of a solution containing 2 mL 40 mg per mL, 80 mg total triamcinolone and 3 mL lidocaine 1% was injected in increments. Contrast spread was noted posterior epidural space. The needle was then retracted approximately half way and needle tract flushed with 1 mL of 1% lidocaine. Needle was then removed. There were no apparent sensory or motor deficits in the lower extremity following the procedure. A sterile bandage was placed over the injection site. The heart rate, pulse, oximetry and blood pressure were continuously monitored after the procedure. There were no apparent complications. The patient tolerated the procedure well and was carefully escorted to the recovery room in stable condition. There were no apparent complications. After meeting discharge criteria, the patient was then discharged home. <ELECTRONICALLY SIGNED> By: William Olson DO 08/04/19 0801 1730 1138 William Olson DO /nt
== END | disposition home or self-care (01) ==
LOC: PAIN 06:49
DX: M54.5 Low back pain (principal); M51.16 Intervertebral disc disorders with radiculopathy, lumbar region; M48.061 Spinal stenosis, lumbar region without neurogenic claudication; M43.17 Spondylolisthesis, lumbosacral region; M47.27 Other spondylosis with radiculopathy, lumbosacral region; G89.29 Other chronic pain; Z98.890 Other specified postprocedural states; Z79.899 Other long term (current) drug therapy

== ENCOUNTER 2019-11-14 12:22 | Emergency (ER) | payer OTHER ==
[~2019-11-14] VITALS: Ht 157.5 cm; Wt 61.2 kg
[2019-11-14 14:09] LABS: ABSOLUTE NEUTROPHILS 7.5 thou/uL (1.4-8.2); BASOPHILS 0.2 % (0.0-2.0); EOSINOPHILS 0.8 % (0.0-3.0); HEMATOCRIT 45.8 % (37.0-47.0); HEMOGLOBIN 14.9 gm/dL (12.0-15.0); LYMPHOCYTES 12.1 % (24.0-44.0); MCH 30.2 pg (26.0-34.0); MCHC 32.5 g/dL (28.0-37.0); MONOCYTES 8.2 % (1.0-8.0); PLATELET COUNT 203 thou/uL (150-400); POLYS 78.7 % (36.0-66.0); RBC 4.93 mil/uL (4.20-5.00); RDW 14.3 % (10.5-14.5); WBC 9.5 thou/uL (4.0-11.0)
[2019-11-14 14:20] LABS: ANION GAP 8 mmol/L (7-16); BUN 21 mg/dL (7-18); CALCIUM 9.9 mg/dL (8.5-10.1); CHLORIDE 102 mmol/L (98-107); CO2 28 mmol/L (21-32); GLUCOSE 80 mg/dL (74-106); POTASSIUM 3.8 mmol/L (3.5-5.1); SODIUM 138 mmol/L (136-145)
[2019-11-14 14:31] LABS: SGOT 20 U/L (15-37); SGPT 25 U/L (30-65); TOTAL BILIRUBIN 0.8 mg/dL (<0.1-1.0); TROPONIN-I <0.06 ng/mL (<0.06)
[2019-11-14 15:16] LABS: URINE BILIRUBIN NEGATIVE (Negative); URINE BLOOD 1+ (Negative); URINE CLARITY CLOUDY; URINE COLOR YELLOW; URINE GLUCOSE-RANDOM* NEGATIVE (Negative); URINE KETONES NEGATIVE (Negative); URINE LEUKOCYTES-REFLEX 1+ (Negative); URINE NITRITE-REFLEX NEGATIVE (Negative); URINE PROTEIN (DIPSTICK) NEGATIVE (Negative); URINE SPECIFIC GRAVITY >= 1.030 (1.005-1.035); URINE UROBILINOGEN 0.2 E.U./dl (0.2-1.0)
[2019-11-14 15:25] LABS: AMORPHOUS URATES Many /LPF (None Seen); BACTERIA-REFLEX 1-9 Few /HPF (None Seen); CASTS None Seen /LPF (None Seen); SQUAMOUS 0-3 Few /LPF (0-3); URINE RBC 0-2 Rare /HPF (0-2); URINE WBC-REFLEX 0-5 Rare /HPF (0-5)
[2019-11-14] MEDS ORDERED: NORFLEX100 MG PO (15:35)
[2019-11-14] MEDS ORDERED: NORCO 5-325 TA1 EAC1 PO (15:35)
[2019-11-14] MEDS ORDERED: KEFLEX500 M1 PO (15:36)
[2019-11-14 16:10] VITALS: BP 118/72
--- NOTE | 2019-11-15 10:23 | EKG ---
[place] [address] [facility] [place] [employer] [place] [address] ELECTROCARDIOGRAM REPORT Name: CYNTHIA FARMER Room #: [facility]#: [id number] Admission: 11/14/19 Attend Phys: Discharge: 11/14/19 Date of : 50 Report #: [id number] THIS REPORT FOR: //name// [facility] ED Test Date: 2019-11-14 Test Time: 13:21:04 Pat Name: CYNTHIA FARMER Department: Room: Gender: F Greenhouse Superintendent: kimberly : 1950 Requested By: Karlie Bucio Order Number: [id number] MD: Harpreet Viera Measurements Intervals [place] Rate: 64 P: 50 MI: 140 QRS: -3 QRSD: 92 T: 49 QT: 394 QTc: 407 Interpretive Statements Sinus rhythm Abnormal R-wave progression, early transition Nonspecific ST segment abnormality Compared to ECG 10/18/2016 23:57:00 Early transition is present. Electronically Signed On 11-15-2019 10:22:21 PUBLIC WORKS SUPERVISOR by Harpreet Viera [email or web address] <ELECTRONICALLY SIGNED> By: Harpreet Viera MD 11/15/19 1022 1321 1321 MD GAGE Rubio
== END 2019-11-14 16:10 | disposition home or self-care (01) ==
LOC: ER 12:22
PROVIDERS: Nurse Practitioner Family
DX: M54.6 Pain in thoracic spine (principal); M54.5 Low back pain

== ENCOUNTER 2019-11-17 10:38 | Inpatient (IN) | payer OTHER ==
[~2019-11-17] VITALS: Ht 157.5 cm; Wt 64.9 kg
[~2019-11-17 10:38] MED LIST changes: +KEFLEX500 M1 PO; +NORCO 5-325 TA1 EAC1 PO
[2019-11-17 10:43] VITALS: BP 132/93
[2019-11-17 11:15] LABS: ABSOLUTE NEUTROPHILS 3.4 thou/uL (1.4-8.2); BASOPHILS 0.7 % (0.0-2.0); EOSINOPHILS 1.6 % (0.0-3.0); HEMOGLOBIN 15.1 gm/dL (12.0-15.0); LYMPHOCYTES 25.8 % (24.0-44.0); MCH 30.3 pg (26.0-34.0); MCHC 32.9 g/dL (28.0-37.0); MCV 92.1 fL (80.0-100.0); MONOCYTES 8.9 % (1.0-8.0); PLATELET COUNT 237 thou/uL (150-400); RBC 4.99 mil/uL (4.20-5.00); RDW 14.1 % (10.5-14.5); WBC 5.4 thou/uL (4.0-11.0)
[2019-11-17 11:20] LABS: ANION GAP 3 mmol/L (7-16); BUN 21 mg/dL (7-18); CALCIUM 10.2 mg/dL (8.5-10.1); CHLORIDE 100 mmol/L (98-107); CO2 33 mmol/L (21-32); CREATININE 1.1 mg/dL (0.6-1.0); GLUCOSE 78 mg/dL (74-106); POTASSIUM 3.5 mmol/L (3.5-5.1); SODIUM 136 mmol/L (136-145)
[2019-11-17 11:28] LABS: TROPONIN-I <0.06 ng/mL (<0.06)
--- NOTE | 2019-11-17 11:32 | NUR ---
PT REPORTS SHE HASNT TAKEN HER XERELTO PAST THREE DAYS SECONDARY TO BREAST BIOPSY
--- NOTE | 2019-11-17 13:18 | NUR ---
old ct results requested from [facility] @ 13:15
[2019-11-17 14:58] LABS: URINE BILIRUBIN NEGATIVE (Negative); URINE BLOOD TRACE (Negative); URINE CLARITY CLEAR; URINE COLOR YELLOW; URINE GLUCOSE-RANDOM* NEGATIVE (Negative); URINE KETONES NEGATIVE (Negative); URINE LEUKOCYTES-REFLEX NEGATIVE (Negative); URINE NITRITE-REFLEX NEGATIVE (Negative); URINE PROTEIN (DIPSTICK) NEGATIVE (Negative); URINE SPECIFIC GRAVITY 1.015 (1.005-1.035)
[2019-11-17 16:29] VITALS: BP 140/95
[2019-11-17 17:08] VITALS: BP 138/87
--- NOTE | 2019-11-17 19:58 | NUR ---
Pt arrived to [address] [place] [address] approx. 1720 this evening. Pt ALOx4, very cooperative and pleasant. Pt placed on telemetry, SR on the monitor. Consents signed and initial orientation to the room education given. Med rec complete. Admission tasks not completed passed on to maintenance mechanic 2nd shift RN.
[2019-11-17 21:59] VITALS: BP 145/2
[2019-11-17 23:50] VITALS: BP 116/84
[2019-11-18] VITALS (9 sets, daily range): BP systolic 105–120; BP diastolic 65–90
--- NOTE | 2019-11-18 02:15 | NUR ---
ASSUMED CARE FROM DAY SHIFT PT ADMITTED FROM AT 1730 ON DAY SHIFT. PT C/O DIZZINESS ANTIVERT PO GIVEN , DISCUSSED PLAN OF VERBALIZED UNDERSTANDING AND AGREEABLE. NIH 0 WHEN ASSESED AT 1999, BED ALARM ON , IV FLUIDS INFUSING WELL. LABORATORY APPARATUS GLASS BLOWER SHOWS NSR. WILL CONITINUE TO MONITOR.
[2019-11-18 05:52] LABS: ABSOLUTE NEUTROPHILS 2.4 thou/uL (1.4-8.2); BASOPHILS 0.7 % (0.0-2.0); EOSINOPHILS 3.3 % (0.0-3.0); HEMATOCRIT 41.5 % (37.0-47.0); HEMOGLOBIN 13.8 gm/dL (12.0-15.0); LYMPHOCYTES 31.3 % (24.0-44.0); MCH 30.7 pg (26.0-34.0); MCHC 33.3 g/dL (28.0-37.0); MCV 92.3 fL (80.0-100.0); MONOCYTES 11.4 % (1.0-8.0); PLATELET COUNT 222 thou/uL (150-400); POLYS 53.3 % (36.0-66.0); RDW 14.3 % (10.5-14.5); WBC 4.4 thou/uL (4.0-11.0)
[2019-11-18 06:56] LABS: CALCIUM 9.3 mg/dL (8.5-10.1); CREATININE 1.1 mg/dL (0.6-1.0); MAGNESIUM 1.9 mg/dL (1.8-2.4); POTASSIUM 3.7 mmol/L (3.5-5.1)
[2019-11-18 09:18] LABS: CHOLESTEROL 163 mg/dL (<200); HDL CHOLESTEROL 61 mg/dL (>40); LDL CHOLESTEROL 91 mg/dL (<100); TC:HDL 2.7 Ratio (Not establshd); TRIGLYCERIDE 59 mg/dL (<150); VLDL 12 mg/dL (<40)
[2019-11-18 11:36] LABS: GLYCOHEMOGLOBIN (HGB A1C) 5.4 % (4.8-5.6)
--- NOTE | 2019-11-18 15:35 | NUR ---
Assumed care approx. 0700 this AM. Pt ALOx4, on room and SR on telemetry. No acute changes this shift. NIH=0. Speech therapy recommends that she continue therapy whom expressed their concerns with Dr. Laguerre. Maintenance fluids dc'd. Tylenol noted to not be treating headache adequately. Toradol IV push written x1 per Dr. Laguerre which has helped the patient relax. Awaiting discharge orders. No acute changes. Pt progressing toward plan of care goals.
[2019-11-18] MEDS ORDERED: MECLIZINE HCL25 MG PO (15:37)
--- NOTE | 2019-11-18 16:31 | NUR ---
cm came to visit pt and was notified by bedside nurse that dr going to dc today with outpt speech, pt will need number. cm visited with pt, [facility] outpt therapy # [phone] and fax # [phone] provided. bedside [place] [phone]. pt reported independent all adl's, drives and manage own medication, 5 steps to enter home, live with . has support. pcp dr joslyn walker.
--- NOTE | 2019-11-26 09:38 | HC ---
[facility] [place] [address] CONSULTATION Name: CYNTHIA FARMER Charles Room #: 359-P [facility] ..#: [id number] Admission: 11/17/19 Attend Phys: Gale Crowell MD Discharge: 11/18/19 Date of : 50 Report #: [id number] THIS REPORT FOR: //name// CC: August Crowell DATE OF SERVICE: 11/18/2019 HISTORY OF PRESENT ILLNESS: The patient is a 69-year-old -[place] female who was admitted with some right eye blurring, some unbalanced gait, and dizziness. CT scan showed no acute changes, small area of the right cerebellum thought to be old. MRI showed some old areas of encephalomalacia consistent with small lacunar infarcts, but no acute changes. No evidence of any acute infarct. We are seeing the patient in rehabilitation medicine consultation. PAST MEDICAL HISTORY: Includes a prior stroke with involvement of the right side of the body and some speech problems. She does have a history of sciatica, history of deep venous thrombosis. She has been on Xarelto. ALLERGIES: No known drug allergies. MEDICATIONS: Please see the full medication listing. SOCIAL HISTORY: Lives in a house with her . Six steps in, was premorbidly independent, ambulatory without gait aids. REVIEW OF SYSTEMS: Did not offer any current complaints of chest pain, shortness of breath or abdominal discomfort. PAST SURGICAL HISTORY: Includes a tummy tuck. She has had a prior breast biopsy. HABITS: No history of tobacco or alcohol abuse. PHYSICAL EXAMINATION: GENERAL: She is a pleasant 69-year-old -[place]ian female in no obvious distress. VITAL SIGNS: Last recorded temperature 97.6, pulse 77, respirations 15, blood pressure is 105/69. The patient is alert, pleasant. HEENT: Facies appeared symmetric. EOMs are full. EXTREMITIES: She has functional range of motion of both upper extremities. Strength is grade 4/5. DTRs are trace to 1. Lower extremities, no focal calf swelling, functional range of motion with strength grade 4/5. Tone appeared to be intact. In physical therapy, she was noted to do well with sit to stand, standby assistance and ambulated 250 feet standby assistance without an assistive device. She was able to bead picker an object off the floor. Physical [address] [address] CONSULTATION Name: CYNTHIA FARMER Charles Room #: 359-P [facility] ..#: [id number] Admission: 11/17/19 Attend Phys: Gale Crowell MD Discharge: 11/18/19 Date of : 50 Report #: [id number] therapy has actually discharged her. ASSESSMENT AND PLAN: A 69-year-old -E[place]ian female admitted with complaints of dizziness, gait instability, visual blurring. She notes her symptoms are improved. CT and MRI of the brain did not show any acute areas of infarction. She thinks the cause may be due to a medication side effect. We will defer to the hospitalist group in this regard. From a functional perspective, she has done quite well with gait and mobility and physical therapy has actually discharged her. She is ambulatory without an adaptive device. She does not meet criteria for an acute in-hospital inpatient rehabilitation stay. Thank you for asking us to assist in this patient's care. <ELECTRONICALLY SIGNED> By: Will Henderson MD 11/26/19 0938 1123 1224 Will Henderson MD /[facility]
--- NOTE | 2019-12-02 12:29 | EKG ---
[address] [place] [address] ELECTROCARDIOGRAM REPORT Name: CYNTHIA FARMER Room #: 359-P [facility] M.R.#: [id number] Admission: 11/17/19 Attend Phys: Gale Crowell MD Discharge: 11/18/19 Date of : 50 Report #: [id number] THIS REPORT FOR: //name// [facility] ED Test Date: 2019-11-17 Test Time: 10:42:25 Pat Name: CYNTHIA FARMER Department: Room: [facility] Gender: F Service Supervisor: ALEN : 1950 Requested By: Vimal Del Real Order Number: [id number] MD: Ashwin Sousa Measurements Intervals [place] Rate: 71 P: 55 NC: 131 QRS: -23 QRSD: 102 T: 34 QT: 412 QTc: 448 Interpretive Statements Sinus rhythm Left atrial enlargement Borderline left axis deviation Abnormal R-wave progression, early transition Compared to ECG 11/14/2019 13:21:04 No significant change was found Electronically Signed On 11-18-2019 7:53:32 VASCULAR RADIOLOGIST by Ashwin Sousa [email or web address] <ELECTRONICALLY SIGNED> By: Ashwin Sousa MD, [facility] 11/18/19 0753 1042 1042 Ashwin Sousa MD, [facility] /EPI
--- NOTE | 2019-12-02 18:31 | HC ---
[facility] [place] [address] CONSULTATION Name: MARLENYCYNTHIA L Room #: 359-P [facility] IN ..#: [id number] Admission: 11/17/19 Attend Phys: Gale Crowell MD Discharge: 11/18/19 Date of : 50 Report #: [id number] THIS REPORT FOR: //name// CC: August Crowell DATE OF SERVICE: 11/17/2019 HISTORY OF PRESENT ILLNESS: This is a 69-year-old female patient who was seen by me in the Emergency Room and subsequently I saw this patient on the floor. The patient's history is poorly defined. She had a stroke on the right side of the body with some speech difficulty long time ago. She made reasonable good recovery and then she indicated that she had some nonspecific symptom, which is blurring of the vision on the right side, dizziness, gait problem. She became worse and she came to the Emergency Room where she was evaluated. The patient was discussed with administrative project coordinator and the Emergency Room physician. She is on Xarelto. She is on Xarelto for a long time. She indicates this is for DVT. She held her Xarelto for a breast biopsy for a few days and then she started taking it again. REVIEW OF SYSTEMS: Positive for UTI, hypertension, DVT, chronic anticoagulation. She also has chronic low back pain. History is poorly defined. That was a relevant 14-point review of system. PAST MEDICAL HISTORY: Positive for DVT and stroke. FAMILY HISTORY: Negative for any epilepsy. SOCIAL HISTORY: She indicates she still works. PHYSICAL EXAMINATION: NEUROLOGIC: Indicates she is alert, responsive, able to follow simple and complex command. Her speech to me looks okay. Cranial nerve examination does not indicate any visual field deficit. She does not appear to be any particularly weak on either side. There is no meningeal sign. There is no carotid bruit. CARDIAC: She said she one time had what she described as heart beating faster. There is no respiratory difficulty. VITAL SIGNS: Blood pressure is 138/87, respirations 18, pulse is 71, and temperature is 97.8. LABORATORY DATA: White count is 5.4. IMAGING STUDY: CT scan demonstrated old stroke. Carotid Doppler was unremarkable. MRI is ordered, but is not done yet. [address] [address] CONSULTATION Name: CYNTHIA FARMER Charles Room #: 359-P [facility] IN ..#: [id number] Admission: 11/17/19 Attend Phys: Gale Crowell MD Discharge: 11/18/19 Date of : 50 Report #: [id number] IMPRESSION: It is not clear what the patient's symptom is from. We will await the MRI and we may need an MRA of the head also depending upon the MRI and some other blood workup, which I ordered. I discussed all of it with the patient in detail and she understood that and she wants to follow the above plan. About 50 minutes of time was spent during both visits taking care of this patient and majority of the time was spent counseling and coordinating this patient's care. <ELECTRONICALLY SIGNED> By: Franki Castillo MD 12/02/19 1831 1850 0250 Franki Castillo MD /nt
== END 2019-11-18 18:23 | disposition home or self-care (01) | DRG 149 ==
LOC: ER 10:38 → EROBS 13:42 → 3W 13:42 → ENTRNSPT 11-18 17:23 → 3W 11-18 18:23
PROVIDERS: Emergency Medicine; Nurse Practitioner; ADMIT Internal Medicine
DX: R42 Dizziness and giddiness (principal); N19 Unspecified kidney failure; I10 Essential (primary) hypertension; M54.9 Dorsalgia, unspecified; G89.29 Other chronic pain; E53.8 Deficiency of other specified B group vitamins; G47.00 Insomnia, unspecified; K59.00 Constipation, unspecified; Z86.718 Personal history of other venous thrombosis and embolism; Z79.01 Long term (current) use of anticoagulants; Z87.440 Personal history of urinary (tract) infections; Z79.2 Long term (current) use of antibiotics; Z79.891 Long term (current) use of opiate analgesic; Z79.899 Other long term (current) drug therapy; Z86.73 Personal history of transient ischemic attack (TIA), and cerebral infarction without residual deficits
CPT/HCPCS: 10879

== ENCOUNTER 2020-09-09 13:50 | Emergency (ER) | payer OTHER ==
[~2020-09-09] VITALS: Ht 154.9 cm; Wt 61.2 kg
[~2020-09-09 13:50] MED LIST changes: +MECLIZINE HCL25 MG PO
[2020-09-09 17:37] LABS: HEMATOCRIT 45.4 % (37.0-47.0); HEMOGLOBIN 15.1 gm/dL (12.0-15.0); MCH 30.3 pg (26.0-34.0); MCHC 33.3 g/dL (28.0-37.0); MCV 91.1 fL (80.0-100.0); PLATELET COUNT 118 thou/uL (150-400); RBC 4.99 mil/uL (4.20-5.00); RDW 14.6 % (10.5-14.5); WBC 6.1 thou/uL (4.0-11.0)
[2020-09-09 17:48] LABS: URINE BLOOD 2+ (Negative); URINE CLARITY CLEAR; URINE COLOR YELLOW; URINE GLUCOSE-RANDOM* NEGATIVE (Negative); URINE KETONES 1+ (Negative); URINE LEUKOCYTES-REFLEX TRACE (Negative); URINE NITRITE-REFLEX NEGATIVE (Negative); URINE PROTEIN (DIPSTICK) 1+ (Negative); URINE SPECIFIC GRAVITY >= 1.030 (1.005-1.035); URINE UROBILINOGEN 0.2 E.U./dl (0.2-1.0)
[2020-09-09 17:56] LABS: ICTOTEST (BILI CONFIRMATORY) Negative (Negative); URINE BILIRUBIN NEGATIVE (Negative)
[2020-09-09 18:01] LABS: MUCUS 0-3 Light strn/LPF (None Seen); SQUAMOUS 0-3 Few /LPF (0-3); URINE RBC 3-10 Few /HPF (0-2); URINE WBC-REFLEX 6-15 Few /HPF (0-5)
[2020-09-09 18:02] LABS: CASTS None Seen /LPF (None Seen); CRYSTALS None Seen /LPF (None Seen)
[2020-09-09 18:03] LABS: CALCIUM 9.2 mg/dL (8.5-10.1); CREATININE 1.3 mg/dL (0.6-1.0); POTASSIUM 3.3 mmol/L (3.5-5.1)
[2020-09-09 18:08] LABS: ALBUMIN 3.7 g/dL (3.4-5.0); TOTAL BILIRUBIN 0.5 mg/dL (0.2-1.0); TOTAL PROTEIN 7.8 g/dL (6.4-8.2)
[2020-09-09 18:11] LABS: ABSOLUTE NEUTROPHILS 4.3 thou/uL (1.4-8.2)
[2020-09-09] MEDS ORDERED: KEFLEX500 M1 PO (18:20)
[2020-09-09 19:44] VITALS: BP 115/78
== END 2020-09-09 19:45 | disposition home or self-care (01) ==
LOC: ER 13:50
PROVIDERS: Emergency Medicine
DX: J06.9 Acute upper respiratory infection, unspecified (principal); B97.89 Other viral agents as the cause of diseases classified elsewhere; R05 Cough; N39.0 Urinary tract infection, site not specified; Z86.73 Personal history of transient ischemic attack (TIA), and cerebral infarction without residual deficits; Z79.899 Other long term (current) drug therapy